=== PATIENT | male | born 1960 | race Caucasian/White ===

== ENCOUNTER 2019-04-08 09:26 | Observation (INO) | payer OTHER ==
[2019-04-08] MEDS ORDERED: NITROGLYCERIN OINT 1 INCH/GM PACKET TOPICAL STA (09:52)
[2019-04-08] MEDS ORDERED: ASPIRIN 81 MG PO STA (09:52)
--- NOTE | 2019-04-08 09:55 | ED ---
General Adult HPI - General Chief complaint: Chest Pain Stated complaint: Chest tightness Time Seen by Provider: 04/08/19 09:41 Source: patient, RN notes reviewed Mode of arrival: ambulatory Limitations: no limitations - History of Present Illness Initial comments: Patient is a pleasant 58-year-old male presenting to the emergency Department with complaints of chest discomfort. Symptoms have been present for the past week. Symptoms are intermittent. Symptoms are minimal at this time. Discomfort is described as tightness. Patient occasionally feels like he cannot take a full breath. Symptoms are not necessarily exertional. No associated nausea or diaphoresis. Patient does have previous cardiac problems with stent placement however does not feel quite like this. No radiation. Patient was at a different facility 4 days ago however did not stay overnight for have stress test as was recommended. No leg pain or leg swelling. - Related Data Home Medications Medication Instructions Recorded Confirmed Aspirin EC [Ecotrin Low Dose] 81 mg PO DAILY 04/08/19 04/08/19 Aspirin EC [Ecotrin] 325 mg PO ONCE PRN 04/08/19 04/08/19 Lisinopril [Zestril] 20 mg PO DAILY 04/08/19 04/08/19 [place]-3 Fatty Acids/Fish Oil [Fish 1 cap PO DAILY 04/08/19 04/08/19 Oil 1,000 mg Softgel] Rosuvastatin [Crestor] 20 mg PO DAILY 04/08/19 04/08/19 Allergies Allergy/AdvReac Type Severity Reaction Status Date / Time No Known Allergies Allergy Unverified 04/08/19 09:46 Review of Systems ROS Statement: Those systems with pertinent positive or pertinent negative responses have been documented in the HPI. ROS Other: All systems not noted in ROS Statement are negative. Constitutional: Denies: fever Eyes: Denies: eye pain ENT: Denies: ear pain Respiratory: Denies: cough Cardiovascular: Reports: as per HPI, palpitations (Occasional) Endocrine: Denies: fatigue Gastrointestinal: Denies: abdominal pain Genitourinary: Denies: dysuria Musculoskeletal: Denies: back pain Skin: Denies: rash Neurological: Denies: weakness Past Medical History Past Medical History: Hypertension History of Any Multi-Drug Resistant Organisms: None Reported Past Surgical History: Heart Catheterization With Stent Past Psychological History: No Psychological Hx Reported Smoking Status: Former smoker Past Alcohol Use History: Daily, Occasional Past Drug Use History: None Reported General Exam Limitations: no limitations General appearance: alert, in no apparent distress Head exam: Present: atraumatic Eye exam: Present: normal appearance, PERRL ENT exam: Present: normal oropharynx Neck exam: Present: normal inspection Respiratory exam: Present: normal lung sounds bilaterally. Absent: chest wall tenderness Cardiovascular Exam: Present: regular rate, normal rhythm Expanded Peripheral pulses: 2+: Radial (R), Radial (L), Dorsalis Pedis (R), Dorsalis Pedis (L) GI/Abdominal exam: Present: soft. Absent: tenderness Extremities exam: Present: normal inspection. Absent: pedal edema, calf tenderness Neurological exam: Present: alert Psychiatric exam: Present: normal affect, normal mood Skin exam: Present: normal color Course Vital Signs 04/08/19 04/08/19 09:28 10:30 Temperature 97.3 F L Pulse Rate 82 74 Respiratory 18 20 Rate Blood Pressure 149/78 135/81 O2 Sat by Pulse 99 99 Oximetry EKG Findings - EKG Comments: EKG Findings:: Sinus rhythm at 79. PVC is present. MS 152. QRS 112. QT 384. QTC 440. Normal axis. Normal QRS. No acute ST change. Medical Decision Making - Medical Decision Making Patient reevaluated and resting comfortably in bed. Patient updated on results and plan. Case was discussed with Dr. ozuna, covering for Dr. Goldman, who admits for Dr. Dumas. She will admit. - Lab Data Result diagrams: 04/08/19 09:45 04/08/19 09:45 Lab Results 04/08/19 04/08/19 04/08/19 Range/Units 09:45 09:45 09:45 WBC 7.1 (3.8-10.6) k/uL RBC 5.00 (4.30-5.90) m/uL Hgb 15.0 (13.0-17.5) gm/dL Hct 45.2 (39.0-53.0) % MCV 90.3 (80.0-100.0) fL MCH 30.0 (25.0-35.0) pg MCHC 33.2 (31.0-37.0) g/dL RDW 15.0 (11.5-15.5) % Plt Count 211 (150-450) k/uL Neutrophils % 67 % Lymphocytes % 21 % Monocytes % 9 % Eosinophils % 1 % Basophils % 0 % Neutrophils # 4.8 (1.3-7.7) k/uL Lymphocytes # 1.5 (1.0-4.8) k/uL Monocytes # 0.6 (0-1.0) k/uL Eosinophils # 0.1 (0-0.7) k/uL Basophils # 0.0 (0-0.2) k/uL PT 9.8 (9.0-12.0) sec INR 0.9 (<1.2) APTT 24.4 (22.0-30.0) sec D-Dimer 0.20 (<0.60) mg/L FEU Sodium 136 L (137-145) mmol/L Potassium 4.3 (3.5-5.1) mmol/L Chloride 99 (98-107) mmol/L Carbon Dioxide 25 (22-30) mmol/L Anion Gap 12 mmol/L BUN 14 (9-20) mg/dL Creatinine 0.93 (0.66-1.25) mg/dL Est GFR (CKD-EPI)AfAm >90 (>60 ml/min/1.73 sqM) Est GFR (CKD-EPI)NonAf >90 (>60 ml/min/1.73 sqM) Glucose 112 H (74-99) mg/dL Calcium 9.3 (8.4-10.2) mg/dL Magnesium 2.2 (1.6-2.3) mg/dL Total Bilirubin 0.6 (0.2-1.3) mg/dL AST 28 (17-59) U/L ALT 34 (21-72) U/L Alkaline Phosphatase 55 (38-126) U/L Troponin I (0.000-0.034) ng/mL NT-Pro-B Natriuret Pep pg/mL Total Protein 7.7 (6.3-8.2) g/dL Albumin 4.8 (3.5-5.0) g/dL 04/08/19 04/08/19 Range/Units 09:45 09:45 WBC (3.8-10.6) k/uL RBC (4.30-5.90) m/uL Hgb (13.0-17.5) gm/dL Hct (39.0-53.0) % MCV (80.0-100.0) fL MCH (25.0-35.0) pg MCHC (31.0-37.0) g/dL RDW (11.5-15.5) % Plt Count (150-450) k/uL Neutrophils % % Lymphocytes % % Monocytes % % Eosinophils % % Basophils % % Neutrophils # (1.3-7.7) k/uL Lymphocytes # (1.0-4.8) k/uL Monocytes # (0-1.0) k/uL Eosinophils # (0-0.7) k/uL Basophils # (0-0.2) k/uL PT (9.0-12.0) sec INR (<1.2) APTT (22.0-30.0) sec D-Dimer (<0.60) mg/L FEU Sodium (137-145) mmol/L Potassium (3.5-5.1) mmol/L Chloride (98-107) mmol/L Carbon Dioxide (22-30) mmol/L Anion Gap mmol/L BUN (9-20) mg/dL Creatinine (0.66-1.25) mg/dL Est GFR (CKD-EPI)AfAm (>60 ml/min/1.73 sqM) Est GFR (CKD-EPI)NonAf (>60 ml/min/1.73 sqM) Glucose (74-99) mg/dL Calcium (8.4-10.2) mg/dL Magnesium (1.6-2.3) mg/dL Total Bilirubin (0.2-1.3) mg/dL AST (17-59) U/L ALT (21-72) U/L Alkaline Phosphatase (38-126) U/L Troponin I <0.012 (0.000-0.034) ng/mL NT-Pro-B Natriuret Pep 18 pg/mL Total Protein (6.3-8.2) g/dL Albumin (3.5-5.0) g/dL Disposition Clinical Impression: Chest pain Disposition: ADMITTED IP TO THIS HOSP Is patient prescribed a controlled substance at d/c from ED?: No Referrals: Matt Newsome MD [Primary Care Provider] - 1-2 days Decision Time: 11:22
[2019-04-08 10:20] LABS: Basophils % (A) 0 %; Eosinophils # (A) 0.1 k/uL (0-0.7); Eosinophils % (A) 1 %; HCT 45.2 % (39.0-53.0); Lymphocytes # (A) 1.5 k/uL (1.0-4.8); Lymphocytes % (A) 21 %; MCHC 33.2 g/dL (31.0-37.0); MCV 90.3 fL (80.0-100.0); Mean Platelet Volume 7.9; Monocytes # (A) 0.6 k/uL (0-1.0); Monocytes % (A) 9 %; Neutrophils # (A) 4.8 k/uL (1.3-7.7); Neutrophils % (A) 67 %; Platelet Count 211 k/uL (150-450); WBC 7.1 k/uL (3.8-10.6)
[2019-04-08 10:35] LABS: D-Dimer 0.2 mg/L FEU (<0.60); INR 0.9 (<1.2); Partial Thromboplastin Time 24.4 sec (22.0-30.0); Prothrombin Time 9.8 sec (9.0-12.0)
--- NOTE | 2019-04-08 10:52 | XR ---
EXAMINATION TYPE: XR chest 2V DATE OF EXAM: 04/08/2019 COMPARISON: NONE HISTORY: Chest tightness and near syncope TECHNIQUE: Frontal and lateral views of the chest are obtained. FINDINGS: There is no focal air space opacity, pleural effusion, or pneumothorax seen. The cardiac silhouette size is within normal limits. The known cardiac stent is seen on the lateral view. The oss eous structures are intact. IMPRESSION: No acute cardiopulmonary process.
[2019-04-08 10:56] LABS: ALT 34 U/L (21-72); AST 28 U/L (17-59); African American GFR (CKD) >90 (>60 ml/min/1.73 sqM); Albumin 4.8 g/dL (3.5-5.0); Alkaline Phosphatase 55 U/L (38-126); Anion Gap 12 mmol/L; Blood Urea Nitrogen 14 mg/dL (9-20); Calcium 9.3 mg/dL (8.4-10.2); Carbon Dioxide 25 mmol/L (22-30); Chloride 99 mmol/L (98-107); Glucose 112 mg/dL (74-99); Magnesium 2.2 mg/dL (1.6-2.3); Potassium 4.3 mmol/L (3.5-5.1); Sodium 136 mmol/L (137-145); Total Bilirubin 0.6 mg/dL (0.2-1.3); Total Protein 7.7 g/dL (6.3-8.2)
[2019-04-08] MEDS ORDERED: NITROGLYCERIN SL TABS 0.4 MG TAB SUBLINGUAL PRN (11:23)
--- NOTE | 2019-04-08 13:56 | P.HPIM ---
History of Present Illness H&P Date: 04/08/19 Chief Complaint: Chest pain The patient is a 58-year-old male the past with a history of essential hypertension, hyperlipidemia, history of primary artery disease with stenting of obtuse marginal 05/12 who presents to the ER via private vehicle with chief complaint of chest pain. Apparently the patient began having substernal mild to moderate nonradiating chest pressure this morning while driving, he denies any exertion prior to this episode. He reported associated feeling of palpitation, dizziness, and shortness of breath. He denied any associated diaphoresis or cold sweats, denied lower extremity swelling, denies subjective fevers chills or night sweats. The patient had an uneasy feeling and relates that to his anxiety despite not being formally diagnosed and anxiety disorder. The patient also reported scotomas and blurry vision. The patient is normally followed by cardiology out of [facility] where he had his stent placed. The patient is a former smoker and is been tobacco free since 2015. In the ER the patient had a comprehensive workup, EKG showed sinus mechanism with PVCs, d-dimer was 0.2, troponin was less than 0.012 NT proBNP was 18 CBC was normal. Chest x-ray showed no acute cardiopulmonary pulmonary disease. The patient was given nitroglycerin aspirin and recommended for admission to rule out ACS Review of Systems Pertinent positives per HPI all others review of system was otherwise negative Past Medical History Past Medical History: Hypertension History of Any Multi-Drug Resistant Organisms: None Reported Past Surgical History: Heart Catheterization With Stent Past Anesthesia/Blood Transfusion Reactions: No Reported Reaction Date of Last Stent Placement:: 2015 Past Psychological History: No Psychological Hx Reported Smoking Status: Former smoker Past Alcohol Use History: Daily, Occasional Past Drug Use History: None Reported - Past Family History Father Family Medical History: Myocardial Infarction ([place]) Additional Family Medical History / Comment(s): at age 44 from [place]. Medications and Allergies Home Medications Medication Instructions Recorded Confirmed Type Aspirin EC [Ecotrin Low Dose] 81 mg PO DAILY 04/08/19 04/08/19 History Aspirin EC [Ecotrin] 325 mg PO ONCE PRN 04/08/19 04/08/19 History Lisinopril [Zestril] 20 mg PO DAILY 04/08/19 04/08/19 History [place]-3 Fatty Acids/Fish Oil [Fish 1 cap PO DAILY 04/08/19 04/08/19 History Oil 1,000 mg Softgel] Rosuvastatin [Crestor] 20 mg PO DAILY 04/08/19 04/08/19 History Allergies Allergy/AdvReac Type Severity Reaction Status Date / Time No Known Allergies Allergy Unverified 04/08/19 09:46 Physical Exam Vitals: Vital Signs Temp Pulse Pulse Resp BP BP Pulse Ox 04/08/19 12:54 87 13 112/74 98 04/08/19 12:00 98.1 F 89 17 110/74 96 04/08/19 11:30 89 20 127/94 99 04/08/19 10:30 74 20 135/81 99 04/08/19 09:28 97.3 F L 82 18 149/78 99 Intake and Output 04/07/19 04/08/19 04/08/19 22:59 06:59 14:59 Other: Voiding Method Toilet Weight 90.718 kg Constitutional: No acute distress, conversant, pleasant Eyes: Anicteric sclerae, moist conjunctiva, no lid-lag, PERRLA ENMT: NC/AT,Oropharynx clear, no erythema, exudates Neck:Supple, FROM, no masses, or JVD, No carotid bruits; No thyromegaly Lungs: Clear to auscultation, Clear to percussion, Normal respiratory effort, no accessory muscle use Cardiovascular: Heart regular in rate and rhythm, No murmurs, gallops, or rubs no peripheral edema Abdominal: Soft Nontender, nom distended, no guarding, no rebound or rigidity, Normoactive bowel sounds No hepatomegaly, No splenomegaly, No palpable mass No abdominal wall hernia noted Skin: Normal temperature, tone, texture, turgor, No induration No subcutaneous nodules, No rash, lesions, No ulcers Extremities:No digital cyanosis No clubbing, Pedal pulses intact and symmetrical Radial pulses intact and symmetrical Normal gait and station, No calf tenderness Psychiatric: Alert and oriented to person, place and time, Appropriate affect In tact judgement Neuro: Muscles Strength 5/5 in all 4 extremities, Sensation to light touch grossly present throughout, Cranial nerves II-XII grossly intact. No focal sensory deficits Results CBC & Chem 7: 04/08/19 09:45 04/08/19 09:45 Labs: Abnormal Lab Results - Last 24 Hours (Table) 04/08/19 Range/Units 09:45 Sodium 136 L (137-145) mmol/L Glucose 112 H (74-99) mg/dL Thrombosis Risk Factor Assmnt - Choose All That Apply Each Factor Represents 1 point: Age 41-60 years Other Risk Factors: No Thrombosis Risk Factor Assessment Total Risk Factor Score: 1 Thrombosis Risk Factor Assessment Level: Low Risk Assessment and Plan (1) Atypical chest pain Current Visit: Yes Status: Acute Code(s): R07.89 - OTHER CHEST PAIN SNOMED Code(s): 484497273 (2) Essential hypertension Current Visit: Yes Status: Acute Code(s): I10 - ESSENTIAL (PRIMARY) HYPERTENSION SNOMED Code(s): 51641804 (3) Hyperlipidemia Current Visit: Yes Status: Acute Code(s): E78.5 - HYPERLIPIDEMIA, UNSPECIFIED SNOMED Code(s): 88474648 (4) Coronary artery disease Current Visit: Yes Status: Acute Code(s): I25.10 - ATHSCL HEART DISEASE OF [place] CORONARY ARTERY W/O ANG PCTRS SNOMED Code(s): 18803541 (5) Hyponatremia Current Visit: Yes Status: Acute Code(s): E87.1 - HYPO-OSMOLALITY AND HYPONATREMIA SNOMED Code(s): 54039618 Plan: The patient's patient observation anticipate a less than 2 midnight stay with atypical chest pain with a history of coronary disease with stenting, initial workup with EKG and troponin is negative patient of any acute ischemia. Patient's blood pressure is not quite at goal continue to monitor resume his home medications, continue routine chest pain orders nitroglycerin, daily aspirin. We'll continue to trend his cardiac markers, client integration manager being consulted from the ER. Follow-up recommendations they may have. We'll continue to follow the patient's critical course CODE STATUS : Full code Anticipated discharge: 1-[address]: Home
[2019-04-08] MEDS ORDERED: MAG HYDROX/AL HYDROX/SIMETH 30 ML CUP PO ONE (14:00)
[2019-04-08] MEDS: NITROGLYCERIN OINT 1 INCH/GM PACKET TOPICAL SCH (15:36)
[2019-04-09] MEDS: NITROGLYCERIN OINT 1 INCH/GM PACKET TOPICAL SCH ×2 (00:54→06:29)
[2019-04-09 02:53] LABS: Cholesterol 145 mg/dL (<200); HDL Cholesterol 55 mg/dL (40-60); LDL Cholesterol,Calculated 45 mg/dL (0-99); Triglycerides 227 mg/dL (<150)
[2019-04-09 04:20] VITALS: TEMP 97.8
[2019-04-09] MEDS ORDERED: ASPIRIN 81 MG PO SCH (09:00)
[2019-04-09] MEDS ORDERED: NON-FORMULARY DRUG (Omega-3 Fatty Acids/Fish Oil [Fish Oil 1,000 Mg Softgel] 1 CAP) PO SCH (09:00)
[2019-04-09] MEDS ORDERED: ATORVASTATIN 40 MG TAB PO SCH (09:00)
[2019-04-09] MEDS ORDERED: ASPIRIN 325 MG TAB PO SCH ×2 (09:00)
[2019-04-09] MEDS ORDERED: LISINOPRIL 20 MG TAB PO SCH (09:00)
--- NOTE | 2019-04-09 10:13 | P.CRDCN ---
History of Present Illness History of present illness: This pleasant 58-year-old male past medical history significant for coronary artery disease status post stent placement to the OM branch in 2016, hypertension, dyslipidemia and former nicotine dependence. He follows with Dr. Redmond. We have been asked to see him in consultation secondary to chest discomfort. He states for the previous one week he has been experiencing a tightness across his entire chest wrapping around into the mid upper back. This is described as a tight sensation like a muscle ache. This typically occurs at rest and is not associated with physical exertion. There is no radiation to the arm, neck or jaw. There is no associated shortness of breath, dizziness, nausea, vomiting, diaphoresis or palpitations. Specifically this morning while driving into work he again had chest tightness this time he also felt palpitations, shortness of breath and mild light headed feeling which was different from previous prompting him to come to ED for evaluation. He continues to feel a mild ache in his chest It is not reproducible on palpation or with deep inspiration. He denies cough, fever or chills at home. No new physical activity in the last few weeks. He states this does not feel at all similar to how he felt in 2016 when he required stenting. He denies cardiomyopathy and states he has not had a stress test since his stent placement. Nitro paste a pplied in ED did not relieve his pain. EKG reveals sinus mechanism heart rate of 79 with frequent PVCs. No acute ST or T wave abnormalities noted. Chest x-ray is negative for an acute cardiopulmonary process. Laboratory data reviewed, WBC 7.1, hemoglobin 15, platelets 211, d-dimer 0.2, sodium 136, potassium 4.3, creatinine 0.93, magnesium 2.2, cardiac enzymes negative 1 and proBNP 18. Current cardiac medications include aspirin 81 mg daily, lisinopril 20 mg daily and rosuvastatin 20 mg daily. At the time of my exam: CONSTITUTIONAL: Denies fever. Denies chills. EYES: Denies blurred vision. Denies vision changes. Denies eye pain. EARS, NOSE, MOUTH & THROAT: Denies headache. Denies sore throat. Denies ear pain. CARDIOVASCULAR: Complains of chest pain. Denies shortness of breath. Denies o rthopnea. Denies PND. Denies palpitations. RESPIRATORY: Denies cough. GASTROINTESTINAL: Denies abdominal pain. Denies diarrhea. Denies constipation. Denies nausea. Denies vomiting. MUSCULOSKELETAL: Denies myalgias. INTEGUMENTARY: Denies pruitis. Denies rash. NEUROLOGIC: Denies numbness. Denies tingling. Denies weakness. PSYCHIATRIC: Denies anxiety. Denies depression. ENDOCRINE: Denies fatigue. Denies weight change. Denies polydipsia. Denies polyurina. GENITOURINARY: Denies burning, hematuria or urgency with micturation. HEMATOLOGIC: Denies history of anemia. Denies bleeding. Blood pressure 112/74 heart rate 87 afebrile maintaining oxygen saturation on room air GENERAL: This is a 58-year-old male in no apparent distress at the time of my examination. HEENT: Head is atraumatic, normocephalic. Pupils are equal, round. Sclerae anicteric. Conjunctivae are clear. Mucous membranes of the mouth are moist. Neck is supple. There is no jugular venous distention. No carotid bruit is heard. LUNGS: Clear to auscultation no wheezes, rales or rhonchi. No chest wall tenderness is noted on palpation or with deep breathing. HEART: Regular rate and rhythm without murmurs, rubs or gallops. S1 and S2 heard. ABDOMEN: Soft, nontender. Bowel sounds are heard. No organomegaly noted. EXTREMITIES: No evidence of peripheral edema and no calf tenderness noted. VASCULAR: Radial and dorsalis pedis pulses palpated, no evidence of clubbing. NEUROLOGIC: Patient is awake, alert and oriented x3. ASSESSMENT Chest pain, atypical for angina. Frequent PVCs noted on EKG. History of coronary artery disease status post stent placement 2016 Hypertension Dyslipidemia Former nicotine dependence PLAN Continue to obtain serial cardiac enzymes to rule out an acute event. Symptoms are more suggestive of an arrhythmia rather than angina. Resume lisinopril, rosuvastatin and aspirin as previously ordered. Give one dose of Maalox now. Obtain 2D echocardiogram and doppler study to assess cardiac structure and function. Perform stress echocardiogram to assess for arrhythmia at max exertion. Also w ill identify if there is any stress induced ischemia. If stress test is normal we will apply a 30-day event monitor. Thank you kindly for this consultation. Nurse Practitioner note has been reviewed, I agree with a documented findings and plan of care. Patient was seen and examined. Past Medical History Past Medical History: Hypertension History of Any Multi-Drug Resistant Organisms: None Reported Past Surgical History: Heart Catheterization With Stent Past Anesthesia/Blood Transfusion Reactions: No Reported Reaction Date of Last Stent Placement:: 2015 Past Psychological History: No Psychological Hx Reported Smoking Status: Former smoker Past Alcohol Use History: Daily, Occasional Past Drug Use History: None Reported - Past Family History Father Family Medical History: Myocardial Infarction ([place]) Additional Family Medical History / Comment(s): at age 44 from [place]. Medications and Allergies Home Medications Medication Instructions Recorded Confirmed Type Aspirin EC [Ecotrin Low Dose] 81 mg PO DAILY 04/08/19 04/08/19 History Aspirin EC [Ecotrin] 325 mg PO ONCE PRN 04/08/19 04/08/19 History Lisinopril [Zestril] 20 mg PO DAILY 04/08/19 04/08/19 History [place]-3 Fatty Acids/Fish Oil [Fish 1 cap PO DAILY 04/08/19 04/08/19 History Oil 1,000 mg Softgel] Rosuvastatin [Crestor] 20 mg PO DAILY 04/08/19 04/08/19 History Allergies Allergy/AdvReac Type Severity Reaction Status Date / Time No Known Allergies Allergy Unverified 04/08/19 09:46 Physical Exam Vitals: Vital Signs Temp Pulse Pulse Resp BP BP Pulse Ox 04/08/19 12:54 87 13 112/74 98 04/08/19 12:00 98.1 F 89 17 110/74 96 04/08/19 11:30 89 20 127/94 99 04/08/19 10:30 74 20 135/81 99 04/08/19 09:28 97.3 F L 82 18 149/78 99 Intake and Output 04/07/19 04/08/19 04/08/19 22:59 06:59 14:59 Other: Voiding Method Toilet Weight 90.718 kg Results 04/08/19 09:45 04/08/19 09:45 Cardiac Enzymes 04/08/19 04/08/19 Range/Units 09:45 09:45 AST 28 (17-59) U/L Troponin I <0.012 (0.000-0.034) ng/mL Coagulation 04/08/19 Range/Units 09:45 PT 9.8 (9.0-12.0) sec APTT 24.4 (22.0-30.0) sec CBC 04/08/19 Range/Units 09:45 WBC 7.1 (3.8-10.6) k/uL RBC 5.00 (4.30-5.90) m/uL Hgb 15.0 (13.0-17.5) gm/dL Hct 45.2 (39.0-53.0) % Plt Count 211 (150-450) k/uL Comprehensive Metabolic Panel 04/08/19 Range/Units 09:45 Sodium 136 L (137-145) mmol/L Potassium 4.3 (3.5-5.1) mmol/L Chloride 99 (98-107) mmol/L Carbon Dioxide 25 (22-30) mmol/L BUN 14 (9-20) mg/dL Creatinine 0.93 (0.66-1.25) mg/dL Glucose 112 H (74-99) mg/dL Calcium 9.3 (8.4-10.2) mg/dL AST 28 (17-59) U/L ALT 34 (21-72) U/L Alkaline Phosphatase 55 (38-126) U/L Total Protein 7.7 (6.3-8.2) g/dL Albumin 4.8 (3.5-5.0) g/dL Current Medications Generic Name Dose Route Start Last Admin Trade Name Freq PRN Reason Stop Dose Admin Aspirin 325 mg 04/09/19 09:00 Aspirin PO DAILY NITISH Nitroglycerin 1 inch 04/08/19 18:00 Nitro-Bid Oint TOPICAL Q6HR NITISH Nitroglycerin 0.4 mg 04/08/19 11:23 Nitrostat SUBLINGUAL Q5M PRN Chest Pain Sodium Chloride 10 ml 04/08/19 21:00 Saline Flush IV BID NITISH Intake and Output 04/07/19 04/08/19 04/08/19 22:59 06:59 14:59 Other: Voiding Method Toilet Weight 90.718 kg Patient Weight 04/09/19 06:59 Weight 90.718 kg 04/08/19 09:45 04/08/19 09:45
--- NOTE | 2019-04-09 11:17 | ECHOF ---
Referral Reason:cp MEASUREMENTS -------- HEIGHT: 175.3 cm WEIGHT: 90.7 kg BP: 110/74 RVIDd: 3.2 cm (< 3.3) IVSd: 1.0 cm (0.6 - 1.1) LVIDd: 3.8 cm (3.9 - 5.3) LVPWd: 1.0 cm (0.6 - 1.1) IVSs: 1.5 cm LVIDs: 3.0 cm LVPWs: 1.7 cm LA Diam: 2.8 cm (2.7 - 3.8) LAESV Index (A-L): 14.28 ml/m Ao Diam: 3.3 cm (2.0 - 3.7) AV Cusp: 2.4 cm (1.5 - 2.6) MV EXCURSION: 19.740 mm (> 18.000) MV EF SLOPE: 104 mm/s (70 - 150) EPSS: 0.5 cm MV E Dev: 0.69 m/s MV DecT: 238 ms MV A Dev: 0.80 m/s MV E/A Ratio: 0.85 FINDINGS -------- Sinus rhythm. This was a technically good study. The left ventricular size is normal. Left ventricular wall thickness is normal. Overall left vent ricular systolic function is normal with, an EF between 60 - 65 %. The right ventricle is normal in size. Normal LA size by volume 22+/-6 ml/m2. The right atrium is normal in size. Aneurysmal Interatrial septum. The aortic valve is trileaflet and appears structurally normal. The mitral valve is normal. The tricuspid valve appears structurally normal. The pulmonic valve was not well visualized. The aortic root size is normal. Normal inferior vena cava with normal inspiratory collapse consistent with estimated right atrial pre ssure of 5 mmHg. There is no pericardial effusion. CONCLUSIONS -------- 1. Sinus rhythm. 2. This was a technically good study. 3. The left ventricular size is normal. 4. Left ventricular wall thickness is normal. 5. Overall left ventricular systolic function is normal with, an EF between 60 - 65 %. 6. The right ventricle is normal in size. 7. Normal LA size by volume 22+/-6 ml/m2. 8. The right atrium is normal in size. 9. Aneurysmal Interatrial septum. 10. The aortic valve is trileaflet and appears structurally normal. 11. The mitral valve is normal. 12. The tricuspid valve appears structurally normal. 13. The pulmonic valve was not well visualized. 14. The aortic root size is normal. 15. Normal inferior vena cava with normal inspiratory collapse consistent with estimated right atrial pressure of 5 mmHg. 16. There is no pericardial effusion. RN GERIATRIC: Luzmaria Norris RDCS
[2019-04-09 12:11] VITALS: BP 104/71; PULSE 97; RESP 16
--- NOTE | 2019-04-09 12:51 | ECHOS ---
STRESS ECHOCARDIOGRAM INDICATIONS: Chest pain MEDICATIONS: Aspirin, lisinopril, Crestor BASELINE HEART RATE: 69 BASELINE BLOOD PRESSURE: 121/98 MAXIMUM HEART RATE: 168 MAXIMUM BLOOD PRESSURE: 211/90 85% MPHR: 139 100% MPHR: 164 METS: 12.1 MAXIMUM STAGE REACHED: 4 TOTAL EXERCISE TIME: 11:00 CLINICAL INFORMATION: Patient is complaining of pounding and palpitations and discomfort in the neck and upper chest. Baseline heart rate 69 beats per minute. Baseline blood pressure 121/98 mmHg. Baseline 12-lead ECG shows normal sinus rhythm. Normal cardiac intervals, normal ST segments. PVCs with an outflow tract type noted. Patient exercised on a Cesar protocol for 11 minutes achieving a peak heart rate of 168 beats per minute, normal blood pressure response. The peak blood pressure was 211/90 mmHg. There was no ECG evidence for ischemia. PVCs were noted at regular interval with suppression with exercise but return of the PVCs in recovery. No nonsustained ventricular tachycardia noted. The baseline 2D echo images showed normal LV size systolic function without segmental wall motion abnormalities. At peak exercise, there was excellent augmentation of overall LV contractility without development of any wall motion abnormalities. At recovery, regional global LV systolic function remained normal. The PVC frequency increased during recovery. IMPRESSION: Good exercise capacity. No ECG evidence for ischemia. Frequent PVCs especially during recovery. No ECG or echocardiographic evidence for ischemia. MMODL / IJN: [id number] /
--- NOTE | 2019-04-09 16:20 | P.DS ---
Providers Date of admission: 04/08/19 11:23 Expected date of discharge: 04/09/19 Attending physician: Elizabeth Tabor DO Consults: 04/08/19 11:23 Consult Physician Urgent Consulting Provider: Jordon Murray Consult Reason/Comments: cp Do you want consulting provider notified?: Yes Primary care physician: Matt Newsome - Discharge Diagnosis(es) (1) Atypical chest pain Status: Acute (2) Essential hypertension Status: Acute (3) Hyperlipidemia Status: Acute (4) Coronary artery disease Status: Acute (5) Hyponatremia Status: Acute Hospital Course: The patient is a 58 year old male is admitted for atypical chest pain his workup here was negative his troponins were negative and his EKG showed sinus mechanism with PVCs. Cardiology was consulted echocardiogram revealed ejection fraction of 60-65%. Subsequent stress echocardiogram was negative for any suggestion of ischemia. It was thought the patient's complaints were secondary to arrhythmia as PVCs were noted on his EKG, cardiology discharge the patient home with a Holter monitor with plans for follow-up in clinic. This discharge process took approximately 30 minutes Focused exam Cardiovascular: Regular rate and rhythm, no murmurs, rubs or gallops Patient Condition at Discharge: Good Plan - Discharge Summary Discharge Rx Participant: No New Discharge Prescriptions: Continue Rosuvastatin [Crestor] 20 mg PO DAILY Lisinopril [Zestril] 20 mg PO DAILY Aspirin EC [Ecotrin] 325 mg PO ONCE PRN PRN Reason: Chest Pain [place]-3 Fatty Acids/Fish Oil [Fish Oil 1,000 mg Softgel] 1 cap PO DAILY Discontinued Aspirin EC [Ecotrin Low Dose] 81 mg PO DAILY Discharge Medication List Aspirin EC [Ecotrin] 325 mg PO ONCE PRN 04/08/19 [History] Lisinopril [Zestril] 20 mg PO DAILY 04/08/19 [History] [place]-3 Fatty Acids/Fish Oil [Fish Oil 1,000 mg Softgel] 1 cap PO DAILY 04/08/19 [History] Rosuvastatin [Crestor] 20 mg PO DAILY 04/08/19 [History] Follow up Appointment(s)/Referral(s): Matt Newsome MD [Primary Care Provider] - 1-2 days (Pt stated he will schedule appointment ) Ra Redmond DO [REFERRING] - 6 Weeks (Pt has appointment scheduled in early may. ) Patient Instructions/Handouts: Chest Pain (DC), Heart Palpitations (DC), Holter Monitor (GEN) Discharge Disposition: HOME SELF-CARE
== END 2019-04-09 15:36 | disposition home or self-care (01) ==
LOC: EC 09:26 → 1SOBS 11:23
PROVIDERS: ADMIT Internal Medicine; ATTEND Internal Medicine
DX: R07.89 Other chest pain (principal); R42 Dizziness and giddiness; R00.2 Palpitations; R06.02 Shortness of breath; H53.8 Other visual disturbances; H53.459 Other localized visual field defect, unspecified eye; I25.10 Atherosclerotic heart disease of native coronary artery without angina pectoris; I10 Essential (primary) hypertension; E87.1 Hypo-osmolality and hyponatremia; E78.5 Hyperlipidemia, unspecified; Z87.891 Personal history of nicotine dependence; Z95.5 Presence of coronary angioplasty implant and graft; Z79.82 Long term (current) use of aspirin; Z79.899 Other long term (current) drug therapy; I49.3 Ventricular premature depolarization; Z82.49 Family history of ischemic heart disease and other diseases of the circulatory system
CPT/HCPCS: 99285; 36415; 93005; 93306; 93270; 93351; 85379; 83880; 80061; 80053; 84443; 83735; 84484; 85025; 85610; 85730; 71046; G0378 ×2

== ENCOUNTER → 2023-10-22 | Outpatient (CLI) | payer OTHER ==
--- NOTE | 2023-10-22 22:07 | MR ---
EXAMINATION TYPE: MR cervical spine wo con DATE OF EXAM: 10/22/2023 COMPARISON: None HISTORY: Neck pain, right shoulder and arm pain and tingling. TECHNIQUE: Multiplanar, multisequence images of the cervical spine were acquired without contrast. Findings: Craniovertebral junction relationships and prevertebral soft tissues are normal. There is anterior cervical fusion of C4 and C5. There is mild degenerative disease at the C3-4 level where there is discogenic endplate changes and m ild posterior disc bulge. It causes mild to moderate mass effect on the ventral aspect of the thecal sac but no compression of the cervical cord. At the C6-7 level, there is a moderate disc spur complex projecting posteriorly slightly greater to t he right of midline resulting in moderate mass effect on the ventral aspect of thecal sac and mild ma ss effect on the right lateral recess. The cervical cord is normal in size and signal intensity. There is multilevel neural foraminal stenosis as follows; moderate to severe C3-4 level bilaterally, mild to moderate at the C6-7 level on the right.. IMPRESSION: 1. Anterior cervical fusion of C5 and C6. 2. Degenerative bodies normal in height and alignment. 3. Normal cervical cord. 4. Degenerative disc changes at C3-4 and C6-7 as described above
== END | disposition home or self-care (01) ==
LOC: RADMRIMAIN 18:43
PROVIDERS: ATTEND Orthopaedic Surgery
DX: M43.22 Fusion of spine, cervical region (principal); M47.22 Other spondylosis with radiculopathy, cervical region; M50.11 Cervical disc disorder with radiculopathy, high cervical region
CPT/HCPCS: 72141